=== PATIENT | female | born 1990 | race Caucasian/White ===

== ENCOUNTER 2018-01-18 03:16 | Outpatient (CLI) | payer OTHER | END 2018-01-18 05:25 | disposition home or self-care (01) | LOC: LDOP 03:16 | PROVIDERS: ATTEND Obstetrics & Gynecology | DX: O26.899 Other specified pregnancy related conditions, unspecified trimester (principal); R10.9 Unspecified abdominal pain; Z3A.00 Weeks of gestation of pregnancy not specified | CPT/HCPCS: 59025; 99211; G0463 ==

== ENCOUNTER 2018-01-28 11:06 | Inpatient (IN) | payer OTHER ==
[~2018-01-28] VITALS: Ht 160 cm; Wt 66.8 kg
[2018-01-28 11:50] VITALS: BP 116/75
[2018-01-28 13:12] LABS: AMNISURE POSITIVE (NEGATIVE)
[2018-01-28] MEDS ORDERED: OXYTOCIN 30U/ 0.9% NaCL 500ML 500 ML IV PRN (14:07)
[2018-01-28] MEDS ORDERED: OXYTOCIN 30U/ 0.9% NaCL 500ML 500 ML IV ONE (14:07)
[2018-01-28] MEDS ORDERED: D5%-LACTATED RINGERS 1,000 ML IV SCH (14:07)
[2018-01-28] MEDS ORDERED: TERBUTALINE 1 MG/ML, 1ML IVPush PRN (14:30)
[2018-01-28] MEDS ORDERED: SODIUM CITRATE/CITRIC ACID 30 ML UDC PO PRN (14:30)
[2018-01-28] MEDS ORDERED: NEWBORN KIT ONE (14:30)
[2018-01-28] MEDS ORDERED: FENTANYL PF 100 MCG/2ML IVPush PRN (14:30)
[2018-01-28] MEDS ORDERED: METOCLOPRAMIDE 5 MG/ML, 2ML IVPush PRN (14:30)
[2018-01-28] MEDS ORDERED: LIDOCAINE 1%, 20ML ONE (14:30)
[2018-01-28] MEDS ORDERED: ONDANSETRON 2MG/ML, 2ML IVPush PRN (14:30)
[2018-01-28] MEDS ORDERED: FENTANYL PF 100 MCG/2ML IV PRN (14:30)
[2018-01-28] MEDS ORDERED: MISOPROSTOL 200 MCG TABLET ONE (14:31)
[2018-01-28] MEDS ORDERED: OXYTOCIN 30U/ 0.9% NaCL 500ML 500 ML ONE (14:31)
[2018-01-28 14:32] LABS: BASOPHILS # (AUTO) 0.04 x10^3/uL (0-0.1); BASOPHILS % (AUTO) 0 % (0-1); EOSINOPHILS # (AUTO) 0.09 x10^3/uL (0-0.4); EOSINOPHILS % (AUTO) 1 % (1-7); LYMPHOCYTES # (AUTO) 1.28 x10^3/uL (1-3.4); LYMPHOCYTES % (AUTO) 11 % (22-44); MD NO; MEAN CORPUSCULAR HEMOGLOBIN 33.6 pg (27.0-34.8); MEAN CORPUSCULAR VOLUME 98.8 fL (80-100); MEAN PLATELET VOLUME 8.7 fL (7.4-10.4); MONOCYTES # (AUTO) 0.44 x10^3/uL (0.2-0.8); MONOCYTES % (AUTO) 4 % (2-9); NEUTROPHILS # (AUTO) 9.43 x10^3/uL (1.8-6.8); NEUTROPHILS % (AUTO) 84 % (42-75); PLATELET COUNT 185 x10^3/uL (130-400); RED BLOOD COUNT 3.92 x10^6/uL (3.82-5.3); RED CELL DISTRIBUTION WIDTH 13.1 % (9.6-15.2)
[2018-01-28] MEDS: LACTATED RINGERS 1,000 ML IV SCH ×2 (14:35→19:06)
[2018-01-28 19:37] VITALS: BP 102/72
[2018-01-28] MEDS ORDERED: FENTANYL PF 100 MCG/2ML ONE (21:21)
[2018-01-28] MEDS ORDERED: IBUPROFEN 600 MG TABLET ONE (22:46)
[2018-01-28] MEDS: IBUPROFEN 600 MG TABLET PO PRN (22:48)
[2018-01-28] MEDS ORDERED: OXYcodone/APAP 5/325MG TABLET PO PRN (23:00)
[2018-01-28] MEDS ORDERED: MISOPROSTOL 200 MCG TABLET PR PRN (23:00)
[2018-01-29] MEDS ORDERED: OXYTOCIN 30U/ 0.9% NaCL 500ML 500 ML ONE (00:08)
[2018-01-29] MEDS: OXYTOCIN 30U/ 0.9% NaCL 500ML 500 ML IV SCH ×3 (00:09→18:33)
[2018-01-29 00:20] VITALS: BP 101/64
[2018-01-29] MEDS: IBUPROFEN 600 MG TABLET PO PRN ×2 (05:13→18:41)
[2018-01-29 05:17] VITALS: BP 101/59
[2018-01-29 06:03] LABS: MEAN CORPUSCULAR HEMOGLOBIN 33.9 pg (27.0-34.8); MEAN CORPUSCULAR HGB CONC 34.2 g/dL (32.4-35.8); MEAN CORPUSCULAR VOLUME 98.9 fL (80-100); MEAN PLATELET VOLUME 8.5 fL (7.4-10.4); PLATELET COUNT 185 x10^3/uL (130-400); RED BLOOD COUNT 3.14 x10^6/uL (3.82-5.3); RED CELL DISTRIBUTION WIDTH 12.4 % (9.6-15.2)
[2018-01-29 06:18] LABS: BASOPHILS # (AUTO) 0.03 x10^3/uL (0-0.1); BASOPHILS % (AUTO) 0 % (0-1); EOSINOPHILS # (AUTO) 0.07 x10^3/uL (0-0.4); EOSINOPHILS % (AUTO) 0 % (1-7); LYMPHOCYTES # (AUTO) 1.53 x10^3/uL (1-3.4); LYMPHOCYTES % (AUTO) 9 % (22-44); MD SCAN; MONOCYTES # (AUTO) 1.05 x10^3/uL (0.2-0.8); MONOCYTES % (AUTO) 6 % (2-9); NEUTROPHILS # (AUTO) 14.73 x10^3/uL (1.8-6.8); NEUTROPHILS % (AUTO) 85 % (42-75)
[2018-01-29 07:05] VITALS: BP 115/74
[2018-01-29] MEDS: DOCUSATE 100 MG CAPSULE PO PRN (10:22)
[2018-01-29] MEDS: PRENATAL VIT/IRON/FA 1 EACH TABLET PO SCH (10:22)
[2018-01-29 12:10] VITALS: BP 99/67
[2018-01-29 19:40] VITALS: BP 106/68
[2018-01-30] MEDS: PRENATAL VIT/IRON/FA 1 EACH TABLET PO SCH (08:10)
[2018-01-30] MEDS: IBUPROFEN 600 MG TABLET PO PRN (08:10)
[2018-01-30] MEDS: DOCUSATE 100 MG CAPSULE PO PRN (08:10)
[2018-01-30 08:15] VITALS: BP 97/60
[2018-01-30] MEDS ORDERED: IBUP-1222 PO (09:46)
== END 2018-01-30 13:30 | disposition home or self-care (01) | DRG 775 ==
LOC: LDOP 11:06 → LDIP 14:07 → 2NW 23:51
PROVIDERS: ADMIT Obstetrics & Gynecology; ATTEND Obstetrics & Gynecology
PROC: 10E0XZZ Delivery of Products of Conception, External Approach (ICD-10-PCS; principal; 2018-01-28)
PROC: 0HQ9XZZ Repair Perineum Skin, External Approach (ICD-10-PCS; 2018-01-28)
DX: O42.913 Preterm premature rupture of membranes, unspecified as to length of time between rupture and onset of labor, third trimester (principal); O70.0 First degree perineal laceration during delivery; Z37.0 Single live birth; Z3A.38 38 weeks gestation of pregnancy
CPT/HCPCS: 36415; 84112; 85025; 86850; 86900; 89060; J2590; J7120; Q0114

== ENCOUNTER 2019-03-12 17:04 | Observation (INO) | payer OTHER ==
[~2019-03-12] VITALS: Ht 160 cm; Wt 66.8 kg
[~2019-03-12 17:04] MED LIST: IBUP-1222 PO
[2019-03-12] MEDS ORDERED: BETAMETHASONE 6 MG/ML, 5ML IM ONE (17:18)
[2019-03-12] MEDS ORDERED: TERBUTALINE 1 MG/ML, 1ML ONE (17:18)
[2019-03-12] MEDS ORDERED: BETAMETHASONE 6 MG/ML, 5ML IM SCH (17:30)
[2019-03-12] MEDS ORDERED: TERBUTALINE 1 MG/ML, 1ML SQ ONE (17:30)
[2019-03-12 17:33] VITALS: BP 105/61
[2019-03-13] MEDS ORDERED: PRENATAL VIT/IRON/FA 1 EACH TABLET PO SCH (09:00)
[2019-03-13] MEDS ORDERED: VALACYCLOVIR 500MG TABLET PO SCH (09:00)
== END 2019-03-12 20:07 | disposition home or self-care (01) ==
LOC: LDOP 17:04 → LDIP 17:55
PROVIDERS: ADMIT Obstetrics & Gynecology; ATTEND Obstetrics & Gynecology
DX: O62.9 Abnormality of forces of labor, unspecified (principal); Z3A.33 33 weeks gestation of pregnancy
CPT/HCPCS: 59025; 87081; 96372; G0378; J0702; J3105

== ENCOUNTER 2019-03-13 03:49 | Inpatient (IN) | payer BC, OTHER ==
[~2019-03-13] VITALS: Ht 160 cm; Wt 66.8 kg
[2019-03-13] MEDS ORDERED: LACTATED RINGERS 1,000 ML IV PRN (04:27)
[2019-03-13] MEDS ORDERED: ACETAMINOPHEN 325 MG TABLET ONE ×2 (06:40→13:03)
[2019-03-13] MEDS: ACETAMINOPHEN 325 MG TABLET PO PRN ×2 (06:41→13:05)
[2019-03-13 07:42] LABS: MICROSCOPIC NOT IND
[2019-03-13] MEDS ORDERED: SODIUM CHLORIDE FLUSH 10ML SYR IVF SCH (09:00)
[2019-03-13] MEDS ORDERED: PRENATAL VIT/IRON/FA 1 EACH TABLET ONE (17:18)
[2019-03-13] MEDS ORDERED: BETAMETHASONE 6 MG/ML, 5ML IM SCH (17:30)
[2019-03-14] MEDS ORDERED: PRENATAL VIT/IRON/FA 1 EACH TABLET PO SCH (09:00)
== END 2019-03-13 17:50 | disposition home or self-care (01) | DRG 833 ==
LOC: CFH 03:49 → LDIP 04:35
PROVIDERS: ADMIT Obstetrics & Gynecology; ATTEND Obstetrics & Gynecology
DX: O60.03 Preterm labor without delivery, third trimester (principal); Z3A.33 33 weeks gestation of pregnancy
CPT/HCPCS: 36415; 81003; 86850; 86900; 87086; G0378; J0702

== ENCOUNTER 2019-03-14 13:27 | Outpatient (CLI) | payer OTHER ==
[~2019-03-14] VITALS: Ht 160 cm; Wt 66.8 kg
[2019-03-14 13:38] VITALS: BP 111/64
== END 2019-03-14 14:05 | disposition home or self-care (01) ==
LOC: LDOP 13:27
PROVIDERS: ATTEND Obstetrics & Gynecology
DX: O62.8 Other abnormalities of forces of labor (principal); Z3A.33 33 weeks gestation of pregnancy
CPT/HCPCS: 59025; 99211; G0463

== ENCOUNTER 2019-03-23 14:48 | Inpatient (IN) | payer OTHER ==
[~2019-03-23] VITALS: Ht 160 cm; Wt 66.5 kg
[2019-03-23 15:22] VITALS: BP 109/71
[2019-03-23] MEDS ORDERED: D5%-LACTATED RINGERS 1,000 ML IV SCH (15:43)
[2019-03-23] MEDS ORDERED: OXYTOCIN 30U/ 0.9% NaCL 500ML 500 ML IV ONE (15:43)
[2019-03-23] MEDS ORDERED: LACTATED RINGERS 1,000 ML IV SCH (15:43)
[2019-03-23] MEDS ORDERED: OXYTOCIN 30U/ 0.9% NaCL 500ML 500 ML IV PRN (15:43)
[2019-03-23] MEDS ORDERED: LIDOCAINE 1%, 20ML ONE (15:50)
[2019-03-23] MEDS ORDERED: NEWBORN KIT ONE (15:50)
[2019-03-23] MEDS ORDERED: OXYTOCIN 30U/ 0.9% NaCL 500ML 500 ML ONE (15:50)
[2019-03-23] MEDS ORDERED: MISOPROSTOL 200 MCG TABLET ONE (15:50)
[2019-03-23] MEDS: SODIUM CHLORIDE FLUSH 3ML SYRINGE IVF SCH (15:54)
[2019-03-23] MEDS ORDERED: FENTANYL PF 100 MCG/2ML IV PRN (16:00)
[2019-03-23] MEDS ORDERED: ONDANSETRON 2MG/ML, 2ML IVPush PRN (16:00)
[2019-03-23] MEDS ORDERED: CALCIUM CARBONATE 500 MG TAB.CHEW PO PRN (16:00)
[2019-03-23] MEDS ORDERED: FENTANYL PF 100 MCG/2ML IVPush PRN (16:00)
[2019-03-23 16:08] LABS: BASOPHILS # (AUTO) 0.04 x10^3/uL (0-0.1); BASOPHILS % (AUTO) 0 % (0-1); EOSINOPHILS # (AUTO) 0.08 x10^3/uL (0-0.4); EOSINOPHILS % (AUTO) 1 % (1-7); LYMPHOCYTES # (AUTO) 1.51 x10^3/uL (1-3.4); LYMPHOCYTES % (AUTO) 12 % (22-44); MD NO; MEAN CORPUSCULAR HEMOGLOBIN 34.1 pg (27.0-34.8); MEAN CORPUSCULAR HGB CONC 34.2 g/dL (32.4-35.8); MEAN CORPUSCULAR VOLUME 99.7 fL (80-100); MEAN PLATELET VOLUME 8.7 fL (7.4-10.4); MONOCYTES # (AUTO) 0.64 x10^3/uL (0.2-0.8); MONOCYTES % (AUTO) 5 % (2-9); NEUTROPHILS % (AUTO) 82 % (42-75); PLATELET COUNT 205 x10^3/uL (130-400); RED BLOOD COUNT 3.96 x10^6/uL (3.82-5.3); RED CELL DISTRIBUTION WIDTH 13.2 % (9.6-15.2)
[2019-03-23 19:40] VITALS: BP 118/76
[2019-03-23] MEDS ORDERED: FENTANYL PF 100 MCG/2ML ONE (20:11)
[2019-03-23] MEDS ORDERED: IBUPROFEN 600 MG TABLET ONE (21:36)
[2019-03-23] MEDS: OXYTOCIN 30U/ 0.9% NaCL 500ML 500 ML IV SCH (21:37)
[2019-03-23] MEDS: IBUPROFEN 600 MG TABLET PO PRN (21:46)
[2019-03-23] MEDS ORDERED: ACETAMINOPHEN 325 MG TABLET PO PRN (22:00)
[2019-03-23] MEDS ORDERED: OXYcodone/APAP 5/325MG TABLET PO PRN (22:00)
[2019-03-23] MEDS ORDERED: MISOPROSTOL 200 MCG TABLET PR PRN (22:00)
[2019-03-23] MEDS ORDERED: ONDANSETRON 2MG/ML, 2ML IV PRN (22:00)
[2019-03-23 23:30] VITALS: BP 112/71
[2019-03-24] MEDS: IBUPROFEN 600 MG TABLET PO PRN ×3 (04:08→22:47)
[2019-03-24 04:15] VITALS: BP 111/71
[2019-03-24 06:03] LABS: MEAN CORPUSCULAR HEMOGLOBIN 33.8 pg (27.0-34.8); MEAN CORPUSCULAR HGB CONC 33.7 g/dL (32.4-35.8); MEAN CORPUSCULAR VOLUME 100.4 fL (80-100); MEAN PLATELET VOLUME 8.9 fL (7.4-10.4); PLATELET COUNT 171 x10^3/uL (130-400); RED BLOOD COUNT 3.34 x10^6/uL (3.82-5.3); RED CELL DISTRIBUTION WIDTH 12.9 % (9.6-15.2)
[2019-03-24 06:32] LABS: BASOPHILS # (AUTO) 0.05 x10^3/uL (0-0.1); BASOPHILS % (AUTO) 0 % (0-1); EOSINOPHILS # (AUTO) 0.08 x10^3/uL (0-0.4); EOSINOPHILS % (AUTO) 1 % (1-7); LYMPHOCYTES # (AUTO) 1.59 x10^3/uL (1-3.4); LYMPHOCYTES % (AUTO) 10 % (22-44); MD SCAN; MONOCYTES # (AUTO) 0.76 x10^3/uL (0.2-0.8); MONOCYTES % (AUTO) 5 % (2-9); NEUTROPHILS # (AUTO) 13.52 x10^3/uL (1.8-6.8); NEUTROPHILS % (AUTO) 85 % (42-75)
[2019-03-24] MEDS: OXYTOCIN 30U/ 0.9% NaCL 500ML 500 ML IV SCH ×2 (07:37→17:37)
[2019-03-24 07:45] VITALS: BP 108/68
[2019-03-24] MEDS: DOCUSATE 100 MG CAPSULE PO PRN ×2 (08:12→22:47)
[2019-03-24] MEDS: PRENATAL VIT/IRON/FA 1 EACH TABLET PO SCH (08:12)
[2019-03-24] MEDS: SODIUM CHLORIDE FLUSH 3ML SYRINGE IVF SCH (09:00)
[2019-03-24 10:57] VITALS: BP 106/72
[2019-03-24 16:30] VITALS: BP 99/64
[2019-03-24 20:45] VITALS: BP 100/64
[2019-03-25] MEDS: OXYTOCIN 30U/ 0.9% NaCL 500ML 500 ML IV SCH ×2 (03:37→13:37)
[2019-03-25] MEDS: IBUPROFEN 600 MG TABLET PO PRN ×2 (05:14→16:09)
[2019-03-25 08:00] VITALS: BP 100/64
[2019-03-25] MEDS: PRENATAL VIT/IRON/FA 1 EACH TABLET PO SCH (09:07)
== END 2019-03-25 20:03 | disposition home or self-care (01) | DRG 805 ==
LOC: LDOP 14:48 → LDIP 15:54 → 2NW 23:22
PROVIDERS: ADMIT Obstetrics & Gynecology; ATTEND Obstetrics & Gynecology
PROC: 10E0XZZ Delivery of Products of Conception, External Approach (ICD-10-PCS; principal; 2019-03-23)
PROC: 0HQ9XZZ Repair Perineum Skin, External Approach (ICD-10-PCS; 2019-03-23)
DX: O42.913 Preterm premature rupture of membranes, unspecified as to length of time between rupture and onset of labor, third trimester (principal); O60.14X0 Preterm labor third trimester with preterm delivery third trimester, not applicable or unspecified; Z37.0 Single live birth; Z3A.34 34 weeks gestation of pregnancy; O70.0 First degree perineal laceration during delivery
CPT/HCPCS: 36415; 85025; 86850; 86900; 89060; G0378; J3010; J2590; J7120; Q0114